=== PATIENT | male | born 1940 | race Caucasian/White ===

== ENCOUNTER 2017-09-17 16:00 | Inpatient (IN) ==
--- NOTE | 2017-09-17 16:13 | Emergency Department Note ---
Disposition Clinical Impression: Hypoxia, History of fall Right upper lobe pneumonia Qualifiers: Pneumonia type: due to unspecified organism Qualified Code(s): J18.1 - Lobar pneumonia, unspecified organism Altered mental status Qualifiers: Altered mental status type: disorientation Qualified Code(s): R41.0 - Disorientation, unspecified Disposition: Admitted As Inpatient Condition: Good Referrals: Conor Flynn MD [Primary Care Provider] - Forms: ED Satisfaction Letter Altered Mental Status HPI - General Chief Complaint: ED Shortness of Breath/Dyspnea Stated Complaint: difficulty in breathing fall ams Time Seen by Provider: 09/17/17 16:08 Source: patient, EMS Mode of arrival: EMS Limitations: altered mental status, age Nursing Notes Reviewed: Yes Vital Signs Reviewed: Yes - History of Present Illness HPI Narrative: The patient presents with history of fall this morning reportedly had hit his head. After about 2:15 this afternoon he has been dyspneic, hypoxic, febrile and confused. Patient is able to state that he tripped over his own shoes. He denies injury to his head or head pain. He points to the lateral aspect of the left hip as necessary for pain. He is quite dyspneic but still is attentive and answering questions. He has not been heard to cough or having wheezing or rattling. Has not had report of vomiting, diarrhea or any other localizing pain or complaint. He is a DNR CC status from the halfway. complaint: altered mental status Onset (ago): hour(s) Timing confirmed by: caregiver Pain Severity: mild, moderate Consistency of Symptoms: waxing and waning Context: trauma Associated symptoms: Reports: fever, chills, malaise, shortness of breath, weakness, difficulty walking. Denies: chest pain, cough, diaphoresis, headaches , loss of appetite, nausea/vomiting, rash, seizure, syncope, foul smelling urine , diarrhea, incontinence - Related Data Home Medications Medication Instructions Recorded Confirmed Atorvastatin [Lipitor] 10 mg PO HS 11/14/16 09/17/17 Nortriptyline [Pamelor] 25 mg PO HS 11/14/16 09/17/17 Bumetanide [Bumex] 0.5 mg PO Q48H 12/07/16 09/17/17 Cholecalciferol (D-3) [Vitamin D] 1,000 unit PO DAILY 12/07/16 09/17/17 Tamsulosin [Flomax] 0.4 mg PO BID 12/07/16 09/17/17 Docusate [Colace] 100 mg PO BID 03/16/17 09/17/17 Sennosides [Senna] 2 tab PO DAILY 03/16/17 09/17/17 Gabapentin [Neurontin] 800 mg PO TID 05/03/17 09/17/17 Tiotropium [Spiriva] 18 mcg IH DAILY 05/03/17 09/17/17 Alprazolam [Alprazolam Xr] 0.25 mg PO BID 09/07/17 09/17/17 Mirtazapine 7.5 mg PO HS 09/07/17 09/17/17 Fluticasone/Salmeterol [Advair 1 each IH Q12H 09/17/17 09/17/17 250-50 Diskus] Previous Rx's Medication Instructions Recorded Finasteride [Proscar] 5 mg PO DAILY #30 tablet 05/04/16 Trazodone HCl 150 mg PO HS #30 tablet 09/08/16 OxyCODONE ER (12 HR) [OxyCONTIN] 30 mg PO Q8HR #60 tab.er.12h 12/07/16 Allergies Allergy/AdvReac Type Severity Reaction Status Date / Time Cefprozil Allergy Swelling Verified 09/17/17 16:33 of Lip/Tongue/Throat ciprofloxacin [From Cipro] Allergy Swelling Verified 09/17/17 16:33 of Lip/Tongue/Throat levofloxacin Allergy Swelling Verified 09/17/17 16:33 of Lip/Tongue/Throat moxifloxacin Allergy Swelling Verified 09/17/17 16:33 of Lip/Tongue/Throat norfloxacin Allergy Swelling Verified 09/17/17 16:33 of Lip/Tongue/Throat All systems ED: reviewed and negative except as stated. Past Medical History - Past Medical History Attestation: Yes The following information was validated with the patient. Source: patient, old records reviewed, nursing notes reviewed Medical history: Reports: arthritis, cancer, COPD, hyperlipidemia, hypertension , myocardial infarction Surgical history: Reports: angioplasty/stent, cancer surgery Psychiatric history: Reports: anxiety, depression - Social History Smoking Status: Current every day smoker Smokeless Tobacco Status: No Alcohol use: Reports: none Drug use: Reports: none Physical Exam - General Limitations: altered mental status, physical limitation General appearance: alert, in distress - Head Head exam: atraumatic, other (Blind in the right eye) - Eye Eye exam: Absent: scleral icterus, conjunctival injection - ENT ENT exam: normal exam, normal oropharynx, mucous membranes moist - Neck Neck exam: Present: normal inspection, full ROM, trachea midline. Absent: tenderness - Chest Chest inspection: Present: normal inspection, symmetric chest wall rise - Respiratory Respiratory exam: Present: respiratory distress. Absent: wheezes, accessory muscle use, prolonged expiratory phase - Cardiovascular Cardiovascular exam: Present: regular rate, normal rhythm, tachycardia, normal heart sounds - Abdominal Exam Abdominal exam: Present: soft, Non-Tender, normal bowel sounds. Absent: tenderness, distention, guarding, rebound, rigidity - Extremities Exam Extremities exam: Present: normal inspection, full ROM, tenderness (Mild tenderness over the lateral aspect of the left hip.), normal capillary refill. Absent: pedal edema - Expanded Lower Extremity Exam Hip/Pelvis exam: Present: normal inspection, full ROM, tenderness (Lateral aspect of the left hip), pelvis stable. Absent: deformity, shortening Upper leg exam: Present: normal inspection, full ROM Knee exam: Present: normal inspection, full ROM. Absent: tenderness, swelling Lower leg exam: Present: normal inspection, full ROM Ankle exam: Present: normal inspection, full ROM. Absent: tenderness, swelling Foot/toe exam: Present: normal inspection, full ROM Neurovascular/Tendon exam: Present: normal capillary refill. Absent: motor deficit, sensory deficit, tendon deficit Gait: not tested/not observed - Back Exam Back exam: Present: normal inspection, full ROM. Absent: tenderness, vertebral tenderness - Neurological Exam Neurological exam: Present: alert. Absent: oriented X3, motor sensory deficit - Psychiatric Psychiatric exam: Present: normal affect, normal mood. Absent: agitated, anxious - Skin Skin exam: Present: warm, dry, intact, cyanosis, pallor. Absent: diaphoresis Course Course Narrative: [id number]: I contacted Dr. Rangel with regard to the workup on this patient. Given the DNR CC status he would not be an immediate candidate for intubation or resuscitation. I wished to discuss wound what degree of comfort measures and evaluation he would feel most appropriate. He recommended IV fluids and IV antibiotics with probable observation. He agreed with CBC, basic chemistries blood cultures and x-rays of his head, chest and left hip. He is mildly tachycardic but it was felt that an EKG or cardiac enzymes would not be of benefit. He has been written for IV fluids and Zosyn and his workup is pending. 1809: With the return of all testing, care is discussed with Dr. Brownlee and orders were obtained for the patient's transfer to the floor. Vital Signs Temperature 100.4 F H 09/17/17 16:02 Pulse Rate 104 09/17/17 16:02 Respiratory Rate 20 09/17/17 16:02 Blood Pressure 115/69 09/17/17 16:02 O2 Sat by Pulse Oximetry 81 09/17/17 16:02 Temperature 100.4 F H 09/17/17 16:02 Pulse Rate 105 09/17/17 16:39 Respiratory Rate 20 09/17/17 16:39 Blood Pressure 105/66 09/17/17 16:39 O2 Sat by Pulse Oximetry 88 09/17/17 16:39 Oxygen Delivery Oxygen Delivery Simple Mask Altered Mental Status - Differential Diagnosis Likely: altered mental status, hypoglycemia, hyponatremia, sepsis - Lab Data Lab results reviewed: Yes I reviewed the patient's lab results. Result diagrams: 09/17/17 16:30 09/17/17 16:30 Lab Results 09/17/17 09/17/17 09/17/17 Range/Units 16:30 16:30 16:30 WBC 17.3 H (4.3-11.1) K/mcL RBC 4.61 (4.19-5.50) M/mcL Hgb 11.6 L (12.9-16.9) g/dL Hct 36.1 L (37.5-50.1) % MCV 78.3 L (83.0-100.0) fL MCH 25.2 L (28.0-33.3) pg MCHC 32.1 (31.6-35.5) g/dL RDW 15.2 H (11.5-14.5) % Plt Count 267 (140-400) K/mcL MPV 8.7 L (9.4-12.4) fL Immature Gran % 0.5 (0-4) % Seg Neutrophils % 84.6 % Lymphocytes % 7.9 % Monocytes % 6.4 % Eosinophils % 0.3 % Basophils % 0.3 % Neutrophils # 14.6 H (1.6-8.9) K/mcL Lymphocytes # 1.4 (0.6-4.6) K/mcL Monocytes # 1.1 (0.0-1.3) K/mcL Eosinophils # 0.1 (0.0-0.6) K/mcL Basophils # 0.1 (0.0-0.2) K/mcL Sodium 128 L (136-145) mEq/L Potassium 4.2 (3.5-5.1) mEq/L Chloride 94 L (98-107) mEq/L Carbon Dioxide 26 (23-29) mEq/L BUN 16 (8-23) mg/dL Creatinine 1.12 (0.70-1.30) mg/dL Est GFR ( Amer) > 60 (> 60) Est GFR (Non-Af Amer) > 60 (> 60) BUN/Creatinine Ratio 14 (6-26) Glucose 130 H (70-105) mg/dL Calculated Osmolality 269 L (280-300) Lactic Acid 1.2 (0.5-2.2) mmol/L Calcium 8.8 (8.6-10.3) mg/dL - Radiology Data Radiology results reviewed: Yes I reviewed the patient's radiology results. Impressions Chest X-Ray 09/17/17 16:20 IMPRESSION: Airspace opacification in the left upper lobe could represent pneumonia. However, follow-up is recommended to ensure resolution. D/ / Alejandro Varela MD / Alejandro Varela MD Interpreting Provider: Alejandro Varela MD Head CT 09/17/17 16:20 IMPRESSION: No acute intracranial abnormality. Diffuse atrophic changes with findings suggesting chronic microvascular ischemia D/ / Alejandro Varela MD / Alejandro Varela MD Interpreting Provider: Alejandro Varela MD Hip X-Ray 09/17/17 16:20 IMPRESSION: 1. No acute abnormalities are seen in the pelvis or left hip D/ / Alejandro Varela MD / Alejandro Varela MD Interpreting Provider: Alejandro Varela MD Checklist - LKW: 3-4.5 hrs Add. Warnings/Precautions Patient/family understanding: The patient/family members have been counseled and understood the risk, benefit , and alternatives of treatment.
[2017-09-17] MEDS ORDERED: Piperacillin/Tazobactam 3.375 GM in D5% in Water (Mini-Bag+) 100 ML IVPB ONE (16:20)
[2017-09-17] MEDS ORDERED: 0.9 % Sodium Chloride 1,000 ML IVC ONE (16:20)
[2017-09-17] MEDS ORDERED: 0.9 % Sodium Chloride 1,000 ML IVC SCH ×2 (16:30→19:57)
[2017-09-17 16:41] LABS: Basophils # 0.1 K/mcL (0.0-0.2); Basophils % 0.3 %; Eosinophils # 0.1 K/mcL (0.0-0.6); Eosinophils % 0.3 %; Hematocrit 36.1 % (37.5-50.1); Hemoglobin 11.6 g/dL (12.9-16.9); Immature Granulocytes % 0.5 % (0-4); Lymphocytes # 1.4 K/mcL (0.6-4.6); Lymphocytes % 7.9 %; Mean Corpuscular HGB Conc 32.1 g/dL (31.6-35.5); Mean Corpuscular Hemoglobin 25.2 pg (28.0-33.3); Mean Corpuscular Volume 78.3 fL (83.0-100.0); Mean Platelet Volume 8.7 fL (9.4-12.4); Monocytes # 1.1 K/mcL (0.0-1.3); Monocytes % 6.4 %; Neutrophils # 14.6 K/mcL (1.6-8.9); Platelet Count 267 K/mcL (140-400); Red Blood Count 4.61 M/mcL (4.19-5.50); Red Cell Distribution Width 15.2 % (11.5-14.5); Segmented Neutrophils % 84.6 %
[2017-09-17 16:55] LABS: BUN/Creatinine Ratio 14 (6-26); Blood Urea Nitrogen 16 mg/dL (8-23); Calcium 8.8 mg/dL (8.6-10.3); Carbon Dioxide 26 mEq/L (23-29); Chloride 94 mEq/L (98-107); Glucose 130 mg/dL (70-105); Osmolality,Calculated 269 (280-300); Potassium 4.2 mEq/L (3.5-5.1); Sodium 128 mEq/L (136-145); eGFR For African Americans > 60 (> 60); eGFR For Non-African Americans > 60 (> 60)
[2017-09-17] MEDS ORDERED: MOM Conc 10 ML UD.LIQ PO PRN (19:57)
[2017-09-17] MEDS ORDERED: Naloxone 0.4 MG/ML INJ IVP PRN (19:57)
[2017-09-17] MEDS ORDERED: Bumetanide 1 MG TABLET PO SCH (19:57)
[2017-09-17] MEDS ORDERED: Acetaminophen 325 MG TABLET PO PRN (19:57)
[2017-09-17] MEDS ORDERED: Ondansetron 4 MG/2 ML VIAL IVP PRN (19:57)
[2017-09-17] MEDS: Acetaminophen 325 MG TABLET PO PRN (22:15)
[2017-09-17] MEDS: Gabapentin 400 MG CAPSULE PO SCH (22:15)
[2017-09-17] MEDS: traZODone 50 MG TABLET PO SCH (22:16)
[2017-09-17] MEDS: Levofloxacin 500 MG/100 ML 500 MG/100 ML BAG IVPB SCH (22:17)
[2017-09-17] MEDS: Mirtazapine 15 MG TABLET PO SCH (22:17)
[2017-09-17] MEDS: ALPRAZolam 0.25 MG TABLET PO SCH (22:37)
[2017-09-17] MEDS: Ipratropium/Albuterol Neb 3 ML IH SCH (22:56)
[2017-09-18] MEDS ORDERED: Piperacillin/Tazobactam 3.375 GM in Water for inj. (sterile) 20 ML 20 ML IVPB SCH
[2017-09-18] MEDS ORDERED: 0.9 % Sodium Chloride 250 ML IVC ONE (00:23)
[2017-09-18] MEDS: Ipratropium/Albuterol Neb 3 ML IH SCH ×2 (03:56→10:35)
[2017-09-18] MEDS: *HR* OxyCODONE ER (12 HR) 10 MG TABLET PO SCH ×3 (05:39→17:48)
[2017-09-18] MEDS ORDERED: Sennosides 8.6 MG TABLET PO SCH (09:00)
[2017-09-18] MEDS: Finasteride 5 MG TABLET PO SCH (10:01)
[2017-09-18] MEDS: Gabapentin 400 MG CAPSULE PO SCH ×3 (10:01→20:00)
[2017-09-18] MEDS: ALPRAZolam 0.25 MG TABLET PO SCH ×2 (10:02→20:01)
--- NOTE | 2017-09-18 12:12 | Internal Med History&Physical ---
Date of Encounter: 09/18/17 Time of Encounter: 11:40 Assessment and Plan (1) Pneumonia Current visit: No Status: Acute He has been started on IV Levaquin and Zosyn. We will add lactobacillus. We will order chest CT to follow-up nodules and further evaluate pneumonia. Qualifiers: Pneumonia type: due to unspecified organism Laterality: right Lung location: unspecified part of lung Qualified Code(s): J18.9 - Pneumonia, unspecified organism (2) Pulmonary nodules Current visit: No Status: Chronic We will order chest CT as per above. (3) Anemia Current visit: No Status: Acute We will order anemia testing in a.m. Qualifiers: Anemia type: unspecified type Qualified Code(s): D64.9 - Anemia, unspecified (4) Acute renal failure Current visit: No Status: Acute Give IV fluids, stop Bumex, and monitor renal indices. Qualifiers: Acute renal failure type: unspecified Qualified Code(s): N17.9 - Acute kidney failure, unspecified (5) Hyponatremia Current visit: Yes Status: Acute Possibly secondary to diuretic use and/or SIADH from pneumonia. Will continue IV normal saline and recheck labs in a.m. We will discontinue Bumex. Internal Medicine - H&P: HPI Chief complaint: Fall, pneumonia Admitted From: Emergency Dept Plans for Post Hospital Care: Transfer Long-Term Facility History of present illness: Mr. Sommers is a 77 year old male who was brought to emergency room after he had a fall at the [facility]. He reports he slipped on his shoes. He sustained an abrasion/laceration to his left elbow but no significant injury otherwise. He began developing more dyspnea with hypoxemia a few hours later. He was brought to emergency room and evaluated and found to have probable left upper lobe pneumonia. He was admitted to [facility] floor for ongoing care needs. He has smoked since age 17 up to 2 packs per day. He has a diagnosis of COPD but does not recall when PFTs were done. He wears oxygen as needed at the [facility]. His most recent chest CT was 03/13/2017 which showed moderate severe emphysema, stable 6 mm right upper lobe nodule, bilateral lower lobe infiltrates with mucus plugging, and a 9 mm right upper lobe opacity increased in size from 3 mm on previous study. Short interval follow-up in 3 months was recommended to assess stability. Past Med Surg Social Fam HX - Past Medical History Medical history: arthritis, cancer, COPD, hyperlipidemia, hypertension, myocardial infarction Psychiatric history: anxiety, depression - Past Surgical History Surgical History: angioplasty/stent, cancer surgery - Social History Smoking Status: Current every day smoker Smokeless Tobacco Status: No Alcohol use: none Drug use: none - Family History Father Living Status: Hx Family Cancer: Yes Mother Living Status: Hx Family Cancer: Yes Internal Medicine - H&P: Meds Finasteride [Proscar] 5 mg PO DAILY #30 tablet 05/04/16 [Rx] Trazodone HCl 150 mg PO HS #30 tablet 09/08/16 [Rx] Atorvastatin [Lipitor] 10 mg PO HS 11/14/16 [History] Nortriptyline [Pamelor] 25 mg PO HS 11/14/16 [History] Bumetanide [Bumex] 0.5 mg PO Q48H 12/07/16 [History] Cholecalciferol (D-3) [Vitamin D] 1,000 unit PO DAILY 12/07/16 [History] OxyCODONE ER (12 HR) [OxyCONTIN] 30 mg PO Q8HR #60 tab.er.12h 12/07/16 [Rx] Tamsulosin [Flomax] 0.4 mg PO BID 12/07/16 [History] Docusate [Colace] 100 mg PO BID 03/16/17 [History] Sennosides [Senna] 2 tab PO DAILY 03/16/17 [History] Gabapentin [Neurontin] 800 mg PO TID 05/03/17 [History] Tiotropium [Spiriva] 18 mcg IH DAILY 05/03/17 [History] Alprazolam [Alprazolam Xr] 0.25 mg PO BID 09/07/17 [History] Mirtazapine 7.5 mg PO HS 09/07/17 [History] Fluticasone/Salmeterol [Advair 250-50 Diskus] 1 each IH Q12H 09/17/17 [History] 3 Allergy/AdvReac Type Severity Reaction Status Date / Time Cefprozil Allergy Swelling Verified 09/17/17 16:33 of Lip/Tongue/Throat ciprofloxacin [From Cipro] Allergy Swelling Verified 01/22/18 16:33 of Lip/Tongue/Throat levofloxacin Allergy Swelling Verified 09/17/17 16:33 of Lip/Tongue/Throat moxifloxacin Allergy Swelling Verified 09/17/17 16:33 of Lip/Tongue/Throat norfloxacin Allergy Swelling Verified 09/17/17 16:33 of Lip/Tongue/Throat All Systems PM: A 10-system review of systems was performed and is negative for pertinent findings except as documented above in the HPI. Review of systems: Review of systems from his July 2016 [facility] hospitalization were reviewed and revised as below. Gen.: His weight is decreased from 75.807 kg on 04/20/2016 to 74.5 kg on admission now. Cardiovascular: He denies [place] hypertension heart failure angina DVT or pulmonary embolus. Respiratory: As per history of present illness GI: Denies disorders of his liver gallbladder or exocrine pancreas : He has BPH and history of kidney stones in the past. 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 He states the initial tumor was in the lung. However from review of Dr. Lopez's 04/30/2015 note it appears it was likely in his thigh. 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 He had colon cancer resected with partial colectomy and primary anastomosis in 1996. Patient states he is cancer free at this time. He has had anemia documented in the past with anemia workup October 2015 showing no factor deficiency. Psychiatric: He has anxiety and depression Musk skeletal: He has had histiocytoma removed from muscles as per above. He denies DJD gout or other bone joint or muscle disorders. He had low vitamin D level of 23 on 03/04/2016 - Constitutional Vitals: Temp Pulse Resp BP Pulse Ox 98.5 F 93 17 102/59 96 09/18/17 11:31 09/18/17 11:31 09/18/17 11:31 09/18/17 11:31 09/18/17 11:31 Exam: Gen.: He is a well-developed well-nourished male resting comfortably in bed at present time who appears in no severe distress HEENT: Head is atraumatic and normocephalic. Eyes: He has had right eye enucleation. Left eye shows EOMI. There is no scleral icterus. Mouth: Mucosa is moist. Neck: Supple and nontender. There is no thyromegaly or adenopathy noted. Heart: Regular without murmurs gallops or ectopics Lungs: No wheezes or crackles are heard. Abdomen: Bowel sounds are present but diminished. The abdomen is nontender to palpation. Extremities: There is no cyanosis edema or clubbing noted. Dorsalis pedis and posterior tibial pulses are 1-2 over 2 bilaterally. Neurologic: Mental status: He is talkative and seems to be a reliable historian. Cranial nerves: Smile is symmetric. Forehead wrinkles bilaterally. Tongue protrudes midline. EOMI (left eye). Motor: There is no pronator drift. Cerebellar: Finger to nose is intact bilaterally. Skin: Warm and dry. He has an abrasion on his left lateral elbow with dressing in place. Internal Med - H&P Results - Labs CBC & Chem 7: 09/17/17 16:30 09/17/17 16:30 - VTE Documentation of Mechanical Device: Graduated compression elastic hosiery
[2017-09-18] MEDS: Piperacillin/Tazobactam 3.375 GM in Water for inj. (sterile) 20 ML 20 ML IVPB SCH (15:14)
[2017-09-18] MEDS: Sennosides 8.6 MG TABLET PO SCH (15:20)
[2017-09-18] MEDS: Acetaminophen 325 MG TABLET PO PRN (18:28)
[2017-09-18] MEDS: 0.9 % Sodium Chloride 1,000 ML IVC SCH (18:48)
[2017-09-18] MEDS: traZODone 50 MG TABLET PO SCH (19:59)
[2017-09-18] MEDS: Mirtazapine 15 MG TABLET PO SCH (20:00)
[2017-09-19] MEDS: *HR* OxyCODONE ER (12 HR) 10 MG TABLET PO SCH ×4 (02:09→23:59)
[2017-09-19] MEDS: Levofloxacin 500 MG/100 ML 500 MG/100 ML BAG IVPB SCH ×2 (02:16→20:26)
[2017-09-19] MEDS: Piperacillin/Tazobactam 3.375 GM in Water for inj. (sterile) 20 ML 20 ML IVPB SCH ×3 (02:19→14:27)
[2017-09-19] MEDS: Albuterol 2.5 MG/3 ML NEBULIZER IH PRN ×2 (03:02→09:46)
[2017-09-19 05:54] LABS: Basophils % 0.3 %; Eosinophils # 0.5 K/mcL (0.0-0.6); Eosinophils % 3.5 %; Hematocrit 32.5 % (37.5-50.1); Hemoglobin 10.2 g/dL (12.9-16.9); Lymphocytes # 0.8 K/mcL (0.6-4.6); Lymphocytes % 5.8 %; Mean Corpuscular HGB Conc 31.4 g/dL (31.6-35.5); Mean Corpuscular Hemoglobin 24.9 pg (28.0-33.3); Mean Corpuscular Volume 79.5 fL (83.0-100.0); Monocytes % 7.3 %; Platelet Count 246 K/mcL (140-400); Red Blood Count 4.09 M/mcL (4.19-5.50); Red Cell Distribution Width 15.4 % (11.5-14.5); Segmented Neutrophils % 82.1 %
[2017-09-19 06:01] LABS: Neutrophils # 11.2 K/mcL (1.6-8.9)
[2017-09-19 06:11] LABS: BUN/Creatinine Ratio 12 (6-26); Blood Urea Nitrogen 9 mg/dL (8-23); Calcium 7.8 mg/dL (8.6-10.3); Carbon Dioxide 27 mEq/L (23-29); Chloride 101 mEq/L (98-107); Glucose 105 mg/dL (70-105); Magnesium 1.7 mg/dL (1.6-2.6); Osmolality,Calculated 275 (280-300); Potassium 3.8 mEq/L (3.5-5.1); Sodium 133 mEq/L (136-145); eGFR For African Americans > 60 (> 60); eGFR For Non-African Americans > 60 (> 60)
[2017-09-19] MEDS: Acetaminophen 325 MG TABLET PO PRN ×2 (06:51→18:48)
[2017-09-19] MEDS: *HR* Enoxaparin 40 MG/0.4 ML SYRINGE SQ SCH (06:52)
[2017-09-19] MEDS: 0.9 % Sodium Chloride 1,000 ML IVC SCH ×2 (08:55→14:28)
[2017-09-19] MEDS: Finasteride 5 MG TABLET PO SCH (08:55)
[2017-09-19] MEDS: Sennosides 8.6 MG TABLET PO SCH (08:55)
[2017-09-19] MEDS: Gabapentin 400 MG CAPSULE PO SCH (08:55)
[2017-09-19] MEDS: ALPRAZolam 0.25 MG TABLET PO SCH ×2 (08:55→20:26)
[2017-09-19 09:44] LABS: Folate 19.6 ng/mL (3.0-16.0)
--- NOTE | 2017-09-19 10:43 | Internal Med Progress Note ---
Date of Encounter: 09/19/17 Time of Encounter: 10:30 - Assessment and plan (1) Pneumonia Current Visit: No Status: Acute Assessment and plan: September 19. Chest CT showed bilateral pneumonia. Continue IV Levaquin, Zosyn, and lactobacillus. Qualifiers: Pneumonia type: due to unspecified organism Laterality: right Lung location: unspecified part of lung Qualified Code(s): J18.9 - Pneumonia, unspecified organism (2) Pulmonary nodules Current Visit: No Status: Chronic Assessment and plan: September 19. Nodules are stable. Continue antibiotics as per above. (3) Anemia Current Visit: No Status: Acute Assessment and plan: September 19. Iron studies are pending. B12 level was low at 246. Folate was 19.6. Will give IM B12 injection and start oral B12 supplementation and await iron profile. Qualifiers: Anemia type: unspecified type Qualified Code(s): D64.9 - Anemia, unspecified (4) Hyponatremia Current Visit: Yes Status: Acute Assessment and plan: September 19. Sodium improved to 133. Continue present regimen. Anticipate discharge to assisted tomorrow. - Subjective Interval history: September 19. Has no new complaints. - Constitutional Vitals: Temp Pulse Resp BP Pulse Ox 98.6 F 100 18 85/51 92 09/19/17 08:30 09/19/17 08:30 09/19/17 08:30 09/19/17 08:30 09/19/17 08:30 Exam: He is resting comfortably on the side of the bed and appears in no acute distress. His affect is cheerful. I reviewed his medications, labs, and CT report Internal Medicine: Result - Labs CBC & Chem 7: 09/19/17 05:12 09/19/17 05:12 Labs: Short CBC 09/19/17 Range/Units 05:12 WBC 13.6 H (4.3-11.1) K/mcL Hgb 10.2 L (12.9-16.9) g/dL Hct 32.5 L (37.5-50.1) % Plt Count 246 (140-400) K/mcL Neutrophils # 11.2 H (1.6-8.9) K/mcL BMP 09/19/17 05:12 Sodium 133 L Potassium 3.8 Chloride 101 Carbon Dioxide 27 BUN 9 Creatinine 0.75 Glucose 105 Calcium 7.8 L - VTE Documentation of Mechanical Device: Graduated compression elastic hosiery Consult Discharge Plan - Plan Referrals: Conor Flynn MD [Primary Care Provider] - 1 week
[2017-09-19] MEDS ORDERED: Cyanocobalamin (B-12) 1,000 MCG/ML VIAL IM ONE (10:46)
[2017-09-19 12:25] LABS: Ferritin 256 ng/ml (20-250); Iron < 10 mcg/dL (65-175); Transferrin 148 mg/dL (203-362)
[2017-09-19] MEDS: Piperacillin/Tazobactam 3.375 GM in D5% in Water (Mini-Bag+) 100 ML IVPB SCH ×2 (14:00→23:59)
[2017-09-19] MEDS: Gabapentin 300 MG CAPSULE PO SCH ×2 (17:06→20:25)
[2017-09-19] MEDS: traZODone 50 MG TABLET PO SCH (20:25)
[2017-09-19] MEDS: Mirtazapine 15 MG TABLET PO SCH (20:26)
[2017-09-20] MEDS: *HR* Enoxaparin 40 MG/0.4 ML SYRINGE SQ SCH (05:17)
[2017-09-20] MEDS: Piperacillin/Tazobactam 3.375 GM in D5% in Water (Mini-Bag+) 100 ML IVPB SCH (05:18)
[2017-09-20 05:59] LABS: Basophils % 0.2 %; Eosinophils # 0.5 K/mcL (0.0-0.6); Eosinophils % 3.8 %; Hematocrit 33.1 % (37.5-50.1); Hemoglobin 10.6 g/dL (12.9-16.9); Immature Granulocytes % 0.5 % (0-4); Lymphocytes # 1.3 K/mcL (0.6-4.6); Lymphocytes % 9.9 %; Mean Corpuscular Hemoglobin 25.5 pg (28.0-33.3); Mean Corpuscular Volume 79.6 fL (83.0-100.0); Mean Platelet Volume 8.7 fL (9.4-12.4); Monocytes % 7.7 %; Neutrophils # 10.1 K/mcL (1.6-8.9); Platelet Count 295 K/mcL (140-400); Red Blood Count 4.16 M/mcL (4.19-5.50); Red Cell Distribution Width 15.5 % (11.5-14.5); Segmented Neutrophils % 77.9 %
[2017-09-20 06:22] LABS: BUN/Creatinine Ratio 10 (6-26); Blood Urea Nitrogen 7 mg/dL (8-23); Calcium 8.4 mg/dL (8.6-10.3); Carbon Dioxide 30 mEq/L (23-29); Chloride 102 mEq/L (98-107); Glucose 100 mg/dL (70-105); Osmolality,Calculated 280 (280-300); Potassium 4.4 mEq/L (3.5-5.1); Sodium 136 mEq/L (136-145); eGFR For African Americans > 60 (> 60); eGFR For Non-African Americans > 60 (> 60)
[2017-09-20 07:18] VITALS: BP 112/63
--- NOTE | 2017-09-20 10:18 | Discharge Summary ---
Date of Encounter: 09/20/17 Time of Encounter: 10:05 - Discharge Diagnosis (1) Pneumonia Priority: Primary Status: Acute Qualifiers: Pneumonia type: due to unspecified organism Laterality: right Lung location: unspecified part of lung Qualified Code(s): J18.9 - Pneumonia, unspecified organism (2) Pulmonary nodules Priority: Secondary Status: Chronic (3) Anemia Priority: Secondary Status: Acute Qualifiers: Anemia type: unspecified type Qualified Code(s): D64.9 - Anemia, unspecified (4) Hyponatremia Priority: Secondary Status: Resolved - Discharge Medications Prescriptions: Amoxicillin/Clavulanate [Augmentin] 875 mg PO BIDWM 5 Days tablet Ascorbic Acid [C-500] 500 mg PO DAILY 365 Days tablet Cyanocobalamin (B-12) [Vitamin B12] 1,000 mcg PO DAILY 365 Days tablet Doxycycline 100 mg PO BID 5 Days capsule Ferrous Sulfate 325 mg PO DAILY 365 Days tablet Lactobacillus [Culturelle] 1 each PO BID 5 Days cap.sprink Home Medications: Finasteride [Proscar] 5 mg PO DAILY #30 tablet 05/04/16 [Rx] Trazodone HCl 150 mg PO HS #30 tablet 09/08/16 [Rx] Atorvastatin [Lipitor] 10 mg PO HS 11/14/16 [History] Nortriptyline [Pamelor] 25 mg PO HS 11/14/16 [History] Bumetanide [Bumex] 0.5 mg PO Q48H 12/07/16 [History] Cholecalciferol (D-3) [Vitamin D] 1,000 unit PO DAILY 12/07/16 [History] OxyCODONE ER (12 HR) [OxyCONTIN] 30 mg PO Q8HR #60 tab.er.12h 12/07/16 [Rx] Tamsulosin [Flomax] 0.4 mg PO BID 12/07/16 [History] Docusate [Colace] 100 mg PO BID 03/16/17 [History] Sennosides [Senna] 2 tab PO DAILY 03/16/17 [History] Gabapentin [Neurontin] 800 mg PO TID 05/03/17 [History] Tiotropium [Spiriva] 18 mcg IH DAILY 05/03/17 [History] Alprazolam [Alprazolam Xr] 0.25 mg PO BID 09/07/17 [History] Mirtazapine 7.5 mg PO HS 09/07/17 [History] Fluticasone/Salmeterol [Advair 250-50 Diskus] 1 each IH Q12H 09/17/17 [History] Amoxicillin/Clavulanate [Augmentin] 875 mg PO BIDWM 5 Days tablet 09/20/17 [Rx] Ascorbic Acid [C-500] 500 mg PO DAILY 365 Days tablet 09/20/17 [Rx] Cyanocobalamin (B-12) [Vitamin B12] 1,000 mcg PO DAILY 365 Days tablet [Rx] Doxycycline 100 mg PO BID 5 Days capsule 09/20/17 [Rx] Ferrous Sulfate 325 mg PO DAILY 365 Days tablet 09/20/17 [Rx] Lactobacillus [Culturelle] 1 each PO BID 5 Days cap.sprink 09/20/17 [Rx] Allergies/Adverse Reactions: 3 Allergy/AdvReac Type Severity Reaction Status Date / Time Cefprozil Allergy Swelling Verified 09/17/17 16:33 of Lip/Tongue/Throat ciprofloxacin [From Cipro] Allergy Swelling Verified 09/17/17 16:33 of Lip/Tongue/Throat levofloxacin Allergy Swelling Verified 09/17/17 16:33 of Lip/Tongue/Throat moxifloxacin Allergy Swelling Verified 09/17/17 16:33 of Lip/Tongue/Throat norfloxacin Allergy Swelling Verified 09/17/17 16:33 of Lip/Tongue/Throat Date of admission: 09/18/17 16:31 Primary care physician: Conor Flnyn MD - Patient Status Disposition: Transfer SNF Condition: Good Functional capacity at discharge: uses cane/walker Overall status at discharge: patient is progressing back to baseline - Discharge Instructions Follow Up With: Conor Flynn MD [Primary Care Provider] - 1 week - Diet and Activity Activity: resume usual activities as tolerated Diet: advance to your usual diet Hospital course: Mr. Sommers is a 77 year old male who was brought to emergency room [facility] He reports he slipped on his shoes. He sustained an abrasion/laceration to his left elbow but no significant injury otherwise. He began developing more dyspnea with hypoxemia a few hours later. He was brought to emergency room and evaluated and found to have probable left upper lobe pneumonia. He was admitted to MedSurg floor for ongoing care needs. Initial orders were written by the emergency room physician. I saw him on September 18 and performed the history and physical. He was started on IV Levaquin and Zosyn. I added lactobacillus. Chest CT was ordered to further evaluate. It showed multifocal opacities in the left upper and bilateral lower lobes consistent with pneumonia. There was right upper lobe tree-in-bud opacities probably reflecting in inflammatory/infectious bronchiolitis. There were multiple stable scattered subcentimeter pulmonary nodules throughout both lungs unchanged from 03/13/2017, likely benign. There was mild mediastinal lymphadenopathy likely benign. It was recommended a short-term chest CT follow- up be done in 6-8 weeks to ensure resolution. His PCP Dr. Flynn can order this. He will continue with antibiotic and probiotic for 5 additional days at discharge. Anemia testing showed iron less than 10, transferrin saturation not calculated, transferrin 148, ferritin 256, B12 246, and folate 19.6. He will be given ferrous sulfate with vitamin C. He received a B12 injection during hospitalization and will start oral B12 supplementation. IV fluids were given and BUN and creatinine improved to 7 and 0.73 respectively by day of discharge. Sodium level returned to normal at 136 on day of discharge. On September 20 I felt he was stable for discharge back to [facility] where he will follow with Dr. Flynn. - Time Spent with Patient Total time spent providing and/or coordinating discharge services: - Constitutional Vitals: Temp Pulse Resp BP Pulse Ox 100.7 F H 95 20 112/63 90 09/20/17 07:09 09/20/17 07:09 09/20/17 07:09 09/20/17 07:09 09/20/17 07:09 - VTE Documentation of Mechanical Device: Graduated compression elastic hosiery
--- NOTE | 2017-09-20 10:27 | Physician Discharge Referral ---
ExtendedCare Referral Info Transfer To: [facility] Provider in Charge: Kem Provider in Charge after Transfer: PCP Kalpana) - Diagnosis (1) Pneumonia Priority: Primary Status: Acute (2) Pulmonary nodules Priority: Secondary Status: Chronic (3) Anemia Priority: Secondary Status: Acute (4) Hyponatremia Priority: Secondary Status: Resolved Prognosis: Fair Aware of Diagnosis: Patient Aware of Prognosis: Patient - Transfer Medications Prescriptions: Amoxicillin/Clavulanate [Augmentin] 875 mg PO BIDWM 5 Days tablet Ascorbic Acid [C-500] 500 mg PO DAILY 365 Days tablet Cyanocobalamin (B-12) [Vitamin B12] 1,000 mcg PO DAILY 365 Days tablet Doxycycline 100 mg PO BID 5 Days capsule Ferrous Sulfate 325 mg PO DAILY 365 Days tablet Lactobacillus [Culturelle] 1 each PO BID 5 Days cap.sprink Home Medications: Finasteride [Proscar] 5 mg PO DAILY #30 tablet 05/04/16 [Rx] Trazodone HCl 150 mg PO HS #30 tablet 09/08/16 [Rx] Atorvastatin [Lipitor] 10 mg PO HS 11/14/16 [History] Nortriptyline [Pamelor] 25 mg PO HS 11/14/16 [History] Bumetanide [Bumex] 0.5 mg PO Q48H 12/07/16 [History] Cholecalciferol (D-3) [Vitamin D] 1,000 unit PO DAILY 12/07/16 [History] OxyCODONE ER (12 HR) [OxyCONTIN] 30 mg PO Q8HR #60 tab.er.12h 12/07/16 [Rx] Tamsulosin [Flomax] 0.4 mg PO BID 12/07/16 [History] Docusate [Colace] 100 mg PO BID 03/16/17 [History] Sennosides [Senna] 2 tab PO DAILY 03/16/17 [History] Gabapentin [Neurontin] 800 mg PO TID 05/03/17 [History] Tiotropium [Spiriva] 18 mcg IH DAILY 05/03/17 [History] Alprazolam [Alprazolam Xr] 0.25 mg PO BID 09/07/17 [History] Mirtazapine 7.5 mg PO HS 09/07/17 [History] Fluticasone/Salmeterol [Advair 250-50 Diskus] 1 each IH Q12H 09/17/17 [History] Amoxicillin/Clavulanate [Augmentin] 875 mg PO BIDWM 5 Days tablet 09/20/17 [Rx] Ascorbic Acid [C-500] 500 mg PO DAILY 365 Days tablet 09/20/17 [Rx] Cyanocobalamin (B-12) [Vitamin B12] 1,000 mcg PO DAILY 365 Days tablet [Rx] Doxycycline 100 mg PO BID 5 Days capsule 09/20/17 [Rx] Ferrous Sulfate 325 mg PO DAILY 365 Days tablet 09/20/17 [Rx] Lactobacillus [Culturelle] 1 each PO BID 5 Days cap.sprink 09/20/17 [Rx] Allergies/Adverse Reactions: 3 Allergy/AdvReac Type Severity Reaction Status Date / Time Cefprozil Allergy Swelling Verified 09/17/17 16:33 of Lip/Tongue/Throat ciprofloxacin [From Cipro] Allergy Swelling Verified 09/17/17 16:33 of Lip/Tongue/Throat levofloxacin Allergy Swelling Verified 09/17/17 16:33 of Lip/Tongue/Throat moxifloxacin Allergy Swelling Verified 09/17/17 16:33 of Lip/Tongue/Throat norfloxacin Allergy Swelling Verified 09/17/17 16:33 of Lip/Tongue/Throat - Respiratory Orders Oxygen / L per min (2 L/m as needed to keep sat greater than 90%.) Smoking Cessation: Smoking cessation has been advised. For more information, call the [place] Tobacco Quit Line at 2-139-PFKR-NOW. - Lab Orders Lab Orders: Other (include drug levels w/frequency) (CBC with differential, BMP in 5 days) - Mobility Orders Ambulate - Rehabiliation Orders Rehab Potential: Fair - Diet Orders Regular CERTIFICATION: I certify that the transfer of the above named patient to an Extended Care Facility is necessary for the continuing treatment of the diagnosis listed. The above information is true and accurate reflection of patient's current condition. Confidential - Redisclosure prohibited without a patient's written consent.
== END 2017-09-20 11:40 | DRG 194 ==
LOC: INPPIK 16:00 → EMEROOPIK 16:00 → INPPIK 19:34
PROVIDERS: ADMIT Internal Medicine; ATTEND Internal Medicine